=== PATIENT | female | born 1930 | race Caucasian/White ===

== ENCOUNTER 2018-05-15 11:29 | Outpatient (CLI) | payer OTHER | END 2018-05-15 11:30 | disposition home or self-care (01) | LOC: LAB 11:29 | PROVIDERS: ATTEND Family Medicine | DX: R30.0 Dysuria (principal) | CPT/HCPCS: 81001; 87086; 87186 ==

== ENCOUNTER 2018-06-26 08:06 | Outpatient (POV) | payer OTHER | END 2018-06-26 17:00 | LOC: OUTPT 08:06 | PROVIDERS: ATTEND Otolaryngology | DX: H91.90 Unspecified hearing loss, unspecified ear (principal) | CPT/HCPCS: 92557; 92567 ==

== ENCOUNTER 2018-10-26 12:44 | Outpatient (CLI) ==
--- NOTE | 2018-10-26 16:19 | DEXA ---
EXAM: Bone densitometry. History: Osteoporosis. Findings: Evaluation of the lumbar spine reveals a total bone mineral density of 0.951 grams per centimeter squ ared with T-score of negative 1.9. Evaluation of the left hip reveals a total bone mineral density of 0.765 grams per centimeter squared with T-score of negative 1.9. Evaluation of the right hip reveals a total bone mineral density of 0.775 grams per centimeter square d with T-score of negative 1.8 1.8. FRAX: 10-year probability for major osteoporotic fracture is 27.2% and 9.7% for hip fracture. 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
== END 2018-10-26 12:45 | disposition home or self-care (01) ==
LOC: RAD 12:44
PROVIDERS: ATTEND Family Medicine
DX: M81.0 Age-related osteoporosis without current pathological fracture (principal)